=== PATIENT | male | born 1935 | race Caucasian/White ===

== ENCOUNTER 2017-01-17 18:28 | Emergency (ER) | payer MEDICARE, BC ==
--- NOTE | 2017-01-17 18:29 | UC ---
Ear Complaint HPI - HPI Summary HPI Summary: 81 year old male presents with complains of bilateral ear cerumen impaction. - History of Current Complaint Stated Complaint: EAR WAX BUILD-UP Time Seen by Provider: 01/17/17 18:29 Hx Obtained From: Patient Onset/Duration: Sudden Onset Severity Initially: Moderate Severity Currently: Moderate Pain Scale Used: 0-10 Numeric - 0 - Allergies/Home Medications Allergies/Adverse Reactions: Allergies Allergy/AdvReac Type Severity Reaction Status Date / Time No Known Allergies Allergy Verified 12/15/15 18:58 PMH/Surg Hx/FS Hx/Imm Hx Previously Healthy: Yes - Surgical History Surgical History: Yes Surgery Procedure, Year, and Place: tonsils; hip recontruction right - Family History Known Family History: Positive: Other - Lung CA - father - Social History Alcohol Use: None Substance Use Type: None Smoking Status (MU): Never Smoked Tobacco - Immunization History Most Recent Influenza Vaccination: 2012 Review of Systems Constitutional: Negative Skin: Negative Eyes: Negative ENT: Ear Ache Respiratory: Negative Cardiovascular: Negative Gastrointestinal: Negative Genitourinary: Negative Motor: Negative Neurovascular: Negative Musculoskeletal: Negative Neurological: Negative Psychological: Negative All Other Systems Reviewed And Are Negative: Yes Physical Exam Triage Information Reviewed: Yes Appearance: Well-Appearing Vital Signs Reviewed: Yes Eye Exam: Normal ENT: Positive: Other: - bilateral ear cerumen impaction Dental Exam: Normal Neck exam: Normal Neck: Positive: 1 Respiratory Exam: Normal Cardiovascular Exam: Normal Abdominal Exam: Normal Musculoskeletal Exam: Normal Neurological Exam: Normal Psychological Exam: Normal Skin Exam: Normal Ear Complaint Course/Dx - Differential Dx/Diagnosis Provider Diagnoses: bilatral cerumen impaction Discharge - Discharge Plan Condition: Stable Disposition: HOME Prescriptions: Neomyc/Polym/HC 1% OTIC SUSP* [Cortisporin Otic Susp 1%*] 4 drop BOTH EARS QID # 1 btl Patient Education Materials: Cerumen Impaction (ED) Referrals: Ruth Armijo PA [Physician Resource Conservation Manager] -
[2017-01-17 18:38] VITALS: BP 159/68
== END 2017-01-17 19:20 | disposition home or self-care (01) ==
LOC: UCEAST 18:28
DX: H61.23 Impacted cerumen, bilateral (principal)
CPT/HCPCS: 99213; G0463

== ENCOUNTER 2017-02-26 09:25 | Emergency (ER) | payer MEDICARE, BC ==
[2017-02-26] MEDS ORDERED: NS 0.9% 1000 ML* 1,000 ML IV ONE (10:21)
[2017-02-26 11:56] LABS: Hematocrit 31 % (42-52); Hemoglobin 10.2 g/dl (14.0-18.0); Mean Corpuscular HGB Conc 33 g/dl (31-36); Mean Corpuscular Hemoglobin 30 pg (27-31); Mean Corpuscular Volume 89 fL (80-94); Mean Platelet Volume 9 um3 (7.4-10.4); Red Blood Count 3.45 10^6/ul (4.0-5.4); Red Cell Distribution Width 14 % (10.5-15); White Blood Count 7.7 10^3/ul (3.5-10.8)
[2017-02-26 11:58] LABS: Urine Bilirubin Negative (Negative); Urine Glucose Negative (Negative); Urine Nitrite Negative (Negative)
[2017-02-26 12:07] LABS: Albumin 3.4 g/dL (3.2-5.2); BUN/Creatinine Ratio 11.9 (8-20); C Reactive Protein 6.11 mg/L (< 5.00); Calcium 9.2 mg/dL (8.6-10.3); EGFR African American 19.9 (>60); EGFR Non-African American 15.5 (>60); Globulin 3.7 g/dL (2-4); Magnesium 1.8 mg/dL (1.9-2.7); Total Bilirubin 0.2 mg/dL (0.2-1.0); Total Protein 7.1 g/dL (6.4-8.9)
[2017-02-26 12:10] LABS: Potassium 5.7 mmol/L (3.5-5.0)
[2017-02-26] MEDS ORDERED: Dextrose 50% VIAL 50 ml IV STA (12:56)
[2017-02-26] MEDS ORDERED: Insulin REGULAR(*) 1 UNITS UNIT IV PUSH ONE (12:57)
[2017-02-26] MEDS ORDERED: Sodium Bicarbonate 8.4%* 50 ML SYRINGE IV ONE (12:57)
[2017-02-26] MEDS ORDERED: Calcium CHLORIDE 10% SYRINGE* 1 GM/10 ML IV ONE (12:58)
[2017-02-26] MEDS ORDERED: Insulin REGULAR(*) 1 UNITS UNIT ONE (13:10)
[2017-02-26] MEDS ORDERED: Sodium Bicarbonate 8.4%* 50 ML SYRINGE ONE (13:10)
[2017-02-26] MEDS ORDERED: Calcium CHLORIDE 10% SYRINGE* 1 GM/10 ML ONE (13:10)
[2017-02-26] MEDS ORDERED: Dextrose 50% Syringe 50 ML* 25 GM/50 ML SYRINGE ONE (13:10)
[2017-02-26 14:26] LABS: BUN/Creatinine Ratio 11.2 (8-20); Calcium 9.1 mg/dL (8.6-10.3); EGFR African American 21.2 (>60); EGFR Non-African American 16.5 (>60); Potassium 4.4 mmol/L (3.5-5.0)
--- NOTE | 2017-02-26 14:32 | RAD ---
Indication: Abdominal pain. Kidney disease. Comparison: No relevant prior exams available on the [facility] for comparison. Technique: Renal ultrasound. Report: 12.0 x 4.8 x 4.7 cm RIGHT kidney demonstrates heterogeneous increased cortical echogenicity and moderately severe hydronephrosis. No conspicuous stones or focal renal lesions. 12.0 x 4.1 x 5.1 cm LEFT kidney demonstrates similar heterogeneously increased cortical echogenicity and moderately severe hydronephrosis. No conspicuous stones or focal lesions. No ureteral jets visualized at the urinary bladder on real-time exam. Enlarged prostate. IMPRESSION: 1. Increased renal cortical echogenicity consistent with medical renal disease. 2. Moderately severe bilateral hydronephrosis. No visualized urolithiasis. 3. Prostatomegaly.
[2017-02-26 14:35] VITALS: BP 148/61
--- NOTE | 2017-02-26 14:39 | ED ---
Yulia Arenas Thomas, scribed for Manas Lozada MD on 02/26/17 at 1022 . GI/ HPI - HPI Summary HPI Summary: The pt is an 81 y/o M referred to the ED by his PMD after his BUN and creatinine were significantly elevated during routine blood tests. His only complaint is of urinary frequency. Pt denies nausea, vomiting, and pruritus. He is on atenolol. - History of Current Complaint Chief Complaint: EDGeneral Time Seen by Provider: 02/26/17 10:09 Stated Complaint: NEEDS TO HAVE LAB WORK Hx Obtained From: Patient Onset/Duration: Still Present Timing: Constant Pain Intensity: 0 Associated Signs and Symptoms: Positive: Other: - Urinary frequency; NEGATIVE: N /V, pruritus Aggravating Factor(s): Nothing Alleviating Factor(s): Nothing - Allergy/Home Medications Allergies/Adverse Reactions: Allergies Allergy/AdvReac Type Severity Reaction Status Date / Time No Known Allergies Allergy Verified 02/26/17 09:27 Home Medications: Home Medications Atenolol TAB* [Tenormin TAB* 25 MG] 25 mg PO DAILY 02/26/17 [History Confirmed 02/26/17] Atorvastatin* [Lipitor*] 10 mg PO WEEKLY 02/26/17 [History Confirmed 02/26/17] Lactobacillus [Probiotic] 1 cap PO WEEKLY 02/26/17 [History Confirmed 02/26/17] Multivitamins/Minerals TAB* [Theragran/minerals TAB*] 1 tab PO EVERY OTHER DAY 02/26/17 [History Confirmed 02/26/17] Rhodelia-3 Fatty Acids [Rhodelia 3] 1 cap PO EVERY OTHER DAY 02/26/17 [History Confirmed 02/26/17] PMH/Surg Hx/FS Hx/Imm Hx Previously Healthy: No Cardiovascular History: Reports: Hx Hypercholesterolemia - mild, Hx Hypertension History: Reports: Other Problems/Disorders - PMHx pos enlarged prostate - Cancer History Cancer Type, 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 - Surgical History Surgery Procedure, Year, and Place: tonsils; hip recontruction right Infectious Disease History: Unable to Obtain/Confirm Infectious Disease History: Denies: History Other Infectious Disease, Traveled Outside the [place] in Last 30 Days - Family History Known Family History: Positive: Other - Lung CA - father - Social History Alcohol Use: None Hx Substance Use: No Substance Use Type: Reports: None Hx Tobacco Use: No Smoking Status (MU): Never Smoked Tobacco Review of Systems Negative: Vomiting, Nausea Positive: frequency Negative: Other - pruritus All Other Systems Reviewed And Are Negative: Yes Physical Exam - Summary Physical Exam Summary: VITAL SIGNS: Reviewed. GENERAL: Patient is a well-developed and nourished male who is lying comfortable in the stretcher. Patient is not in any acute respiratory distress. HEAD AND FACE: No signs of trauma. No ecchymosis, hematomas or skull depressions. No sinus tenderness. EYES: PERRLA, EOMI x 2, No injected conjunctiva, no nystagmus. EARS: Hearing grossly intact. Ear canals and tympanic membranes are within normal limits. MOUTH: Oropharynx within normal limits. NECK: Supple, trachea is midline, no adenopathy, no JVD, no carotid bruit, no c- spine tenderness, neck with full ROM. CHEST: Symmetric, no tenderness at palpation LUNGS: Clear to auscultation bilaterally. No wheezing or crackles. CVS: Regular rate and rhythm, S1 and S2 present, no murmurs or gallops appreciated. ABDOMEN: Soft, non-tender. No signs of distention. No rebound no guarding, and no masses palpated. Bowel sounds are normal. EXTREMITIES: FROM in all major joints, no edema, no cyanosis or clubbing. NEURO: Alert and oriented x 3. No acute neurological deficits. Speech is normal and follows commands. SKIN: Dry and warm Triage Information Reviewed: Yes Vital Signs On Initial Exam: Initial Vitals Temp Pulse Resp BP Pulse Ox 98.4 F 58 16 142/64 100 02/26/17 09:27 02/26/17 09:27 02/26/17 09:27 02/26/17 09:27 02/26/17 09:27 Vital Signs Reviewed: Yes - [place] Coma Scale Coma Scale Total: 15 Diagnostics - Vital Signs Vital Signs Temp Pulse Resp BP Pulse Ox 02/26/17 09:27 98.4 F 58 16 142/64 100 - Laboratory Result Diagrams: 02/26/17 10:34 02/26/17 14:00 Lab Statement: Any lab studies that have been ordered have been reviewed, and results considered in the medical decision making process. - EKG 10:39 Cardiac Rate: Bradycardia EKG Rhythm: Sinus Rhythm EKG Interpretation: 48 BPM. First degree AV Block. LAFB. Nonspecific T wave changes. - Additional Comments Diagnostic Additional Comments: Ultrasound Renal. Interpreted by radiologist. Impression: 1. Increased renal cortical echogenicity consistent with medical renal disease. 2. Moderately severe bilateral hydronephrosis. No visualized urolithiasis. 3. Prostatomegaly. ED physician has reviewed this report and agrees. GIGU Course/Dx - Course Assessment/Plan: I consulted with Dr. Winters, who is away on vacation and will return on 03/02/17, when he will see the patient. He recommends lowering the patients potassium and follow up at his office on 03/02/17. Dr. Winters recommends lowering the patients potassium and to follow up at his office in four days. The patient was given calcium chloride, dextrose 50%, insulin, IV fluids, and sodium bicarbonate. The patients potassium is down to 4.4 The patient was advised a strict renal diet that includes low potassium and low protein intake. I did tell Dr. Winters that the patient may have multiple myeloma , and Dr. Winters will investigate that. - Diagnoses Provider Diagnoses: Acute renal insufficiency - Physician Notifications Discussed Care Of Patient With: Clay Winters Time Discussed With Above Provider: 13:20 Instructed by Provider To: Other - Dr. Winters, nephrology, advises lowering the patient's potassium and following up at his office on Thursday. He was informed that the patient may have multiple myeloma. Discharge - Discharge Plan Condition: Stable Disposition: HOME Patient Education Materials: Impaired Kidney Function (ED), Low Sodium Diet (ED ) Referrals: Clay Winters MD [Medical Doctor] - 03/02/17 Additional Instructions: Follow up at Dr. Winters's office on March 02. Call his office tomorrow morning for an appointment. The documentation as recorded by the Yulia erazo Thomas accurately reflects the service I personally performed and the decisions made by me, Manas Lozada MD.
== END 2017-02-26 15:03 | disposition home or self-care (01) ==
LOC: ED 09:25
DX: N28.9 Disorder of kidney and ureter, unspecified (principal); R35.0 Frequency of micturition
CPT/HCPCS: 36415; 76775; 80048; 80053; 81003; 82550; 83735; 84300; 85025; 85610; 85730; 86140; 87086; 93005; 96374; 99283

== ENCOUNTER 2017-03-03 09:00 | Inpatient (IN) | payer MEDICARE, BC ==
[2017-03-03] MEDS ORDERED: Acetaminophen TAB* 325 MG PO PRN (17:35)
[2017-03-03] MEDS ORDERED: Ondansetron INJ* 2 MG/ML VIAL IV PRN (17:35)
[2017-03-03] MEDS ORDERED: hydrALAZINE IV* 20 MG/ML VIAL IV SLOW PU PRN (17:41)
[2017-03-03 17:49] LABS: Hematocrit 32 % (42-52); Mean Corpuscular HGB Conc 34 g/dl (31-36); Mean Corpuscular Hemoglobin 31 pg (27-31); Mean Corpuscular Volume 89 fL (80-94); Mean Platelet Volume 9 um3 (7.4-10.4); Red Blood Count 3.59 10^6/ul (4.0-5.4); Red Cell Distribution Width 14 % (10.5-15); White Blood Count 10.4 10^3/ul (3.5-10.8)
[2017-03-03] MEDS: D5W 1/2 NS 1000 ML BAG* 1,000 ML IV SCH ×3 (18:00→22:00)
[2017-03-03] MEDS ORDERED: Atorvastatin* 10 MG TAB PO SCH (18:00)
[2017-03-03 18:07] LABS: BUN/Creatinine Ratio 10.3 (8-20); EGFR African American 18.7 (>60); EGFR Non-African American 14.5 (>60); Magnesium 1.8 mg/dL (1.9-2.7); Phosphorus 4.7 mg/dL (2.5-5.0)
[2017-03-03 18:11] LABS: Potassium 5.7 mmol/L (3.5-5.0)
--- NOTE | 2017-03-03 18:31 | CONS ---
Cc: Lanny Correa DO * UROLOGY CONSULTATION: DATE OF CONSULT: 03/03/17 REQUESTING PHYSICIAN: Clay Winters MD DIAGNOSES: 1. Urinary retention. 2. Bilateral hydronephrosis. 3. Renal insufficiency. 4. Prostate enlargement. HISTORY OF PRESENT ILLNESS: Tamra Hicks is an 81-year-old gentleman was referred by Dr. Winters for urinary retention. Over the last few months, he has noticed some increased urinary frequency and reduced urinary flow. He gets up 4 to 5 times a night, but denies any dysuria, gross hematuria or flank pain. He was noted by his primary care doctor to have an increased serum creatinine and was actually sent to the emergency room last week, where an ultrasound was obtained which revealed severe bilateral hydronephrosis. I reviewed the ultrasound imaging and it is obvious on the ultrasound that he had a distended bladder but for some reason this was not addressed and a Nassar catheter was not placed. He was then referred to Dr. Winters who on examination noted an obviously distended bladder and I was then consulted. PAST MEDICAL HISTORY: Significant for, 1. Hypertension. 2. High cholesterol. PAST SURGICAL HISTORY: Significant for right hip fracture in 1992 and tonsillectomy. MEDICATIONS: On admission include, 1. Lipitor 1 tablet once a week. 2. Atenolol 25 mg daily. ALLERGIES: CIPRO (not sure about nature of allergy). SMOKING HISTORY: He is a nonsmoker. FAMILY HISTORY: Negative for stone or prostate cancer. PHYSICAL EXAM: Reveals a pleasant, healthy appearing, elderly gentleman who is reasonably comfortable. Blood pressure is 162/90, pulse 63 per minute regular, oxygen saturation 97% on room air, temperature 96.4. Cardiovascular Exam: Regular rate and rhythm, S1, S2. Lungs are clear bilaterally. Abdomen: Soft with a markedly distended bladder. Testicles are bilaterally descended and normal. Rectal exam reveals a markedly large prostate without nodularity or asymmetry. DIAGNOSTIC STUDIES/LAB DATA: Urinalysis is negative. A 20-Kosovan coude tip catheter was placed without difficulty and about 1600 cc of clear urine was drained. IMPRESSION AND PLAN: Because of the bilateral hydronephrosis, he is obviously at risk for post-obstructed diuresis. I have explained this to the patient and Dr. Winters has arranged for him to be directly admitted to the hospital. I am also going to discuss this with Dr. Correa and talk about the protocol for fluid management in the event of post- obstructed diuresis. 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 It may make sense to start him on Flomax 0.4 mg once a day and then I can see him in followup as an outpatient and the next step would be to consider urodynamic to assess for detrusor contractility. If he turns out to have a flaccid neuro-genic bladder, then the option would be either indwelling chronic catheter versus intermittent self-catheterization. If on the other hand, he has or does develop return of detrusor function, then he could be a candidate for a transurethral resection of prostate in the future. [id number]/CPS #: [id number] MTDLeo
[2017-03-03] MEDS ORDERED: traMADol TAB* 50 MG PO ONE (18:44)
[2017-03-03] MEDS ORDERED: Sodium Polystyrene ORAL.SOL* 15 GM/60 ML BTL PO ONE (18:45)
[2017-03-03] MEDS ORDERED: traMADol TAB* 50 MG ONE (18:50)
[2017-03-03] MEDS: Atenolol TAB* 25 MG PO SCH (18:57)
--- NOTE | 2017-03-03 18:59 | RAD ---
Indication: Left leg edema. Duplex Doppler sonography of the deep venous system of the left lower extremity deep venous system was performed. Bilaterally the common femoral veins appear patent and compressible. Left proximal greater saphenous vein, proximal deep femoral vein, femoral vein, popliteal vein, posterior tibial veins and peroneal veins appear patent and compressible. Incidentally popliteal fossa cyst is noted measuring up to 3.8 cm. IMPRESSION: NO EVIDENCE OF DEEP VENOUS THROMBOSIS IS IDENTIFIED.
[2017-03-03 23:05] LABS: Urine Bacteria 1+ (Absent)
[2017-03-03 23:25] LABS: Calcium 8.4 mg/dL (8.6-10.3); EGFR African American 19.1 (>60); EGFR Non-African American 14.8 (>60)
--- NOTE | 2017-03-03 23:31 | HP ---
CC: Yvrose Gleason NP; Dr. Mcclellan; Dr. Winters * HISTORY AND PHYSICAL: DATE OF ADMISSION: 03/03/17 PRIMARY CARE PROVIDER: Yvrose Gleason NP CONSULTING UROLOGIST: Dr. Mcclellan. CONSULTING HEADING PINNER: Dr. Winters. ATTENDING PHYSICIAN WHILE IN THE HOSPITAL: Jacky Schaefer MD * (report dictated by Robin Amador NP) CHIEF COMPLAINT: 1. Abnormal labs. 2. Urinary obstruction. HISTORY OF PRESENT ILLNESS: Mr. Hicks is an 81-year-old male patient, who has a history of BPH, hypertension, hyperlipidemia, and a recent diagnosis of Lyme disease. He came into the ER on the of last month with complaints of abnormal labs. He was evaluated by his primary as he has not been feeling well. He had been feeling weak, and he has also been having urinary frequency and he had noted that he was leaking at times his urine. He came to the ED after it was noted that his BUN and creatinine were significantly elevated. He was evaluated and set up to follow up with Dr. Winters which he saw the patient today and was noted that he had a significant amount of urinary retention. The patient was sent over to Dr. Mcclellan's office, a catheter was placed. He had about 1600 cc of urine out of his bladder. There was concern because of the amount of fluid that he out that he might get into the trouble with post obstructive diuresis and he may require IV fluids, so he was sent to our hospital for direct admission. We were asked to evaluate the patient for admission. The patient was evaluated upstairs. He denies having any chest pain or shortness of breath. He has been having some frequency. No pain with urination. No fevers, no chills. No back pain. He does state that he has been having difficulty just because he has to go so frequently. There has been no chest pain. No shortness of breath. Denied having any dysuria. No fevers or chills were reported or any nausea or vomiting. Again, he was found to have about 1600 cc of fluid out in Dr. Mcclellan's office and he was sent to the hospital for further observation. PAST MEDICAL HISTORY: Significant for: 1. Hypertension. 2. Hyperlipidemia. 3. BPH. 4. Lyme disease. PAST SURGICAL HISTORY: 1. The patient has had a right hip ORIF. 2. He has had a tonsillectomy. HOME MEDICATIONS: According to his recall include: 1. Atenolol 25 mg daily. 2. Atorvastatin 1 tablet weekly. 3. Probiotics 1 capsule weekly. 4. Multivitamin 1 tablet every other day. 5. Calhoun-3 fatty acid 1 capsule p.o. every other day. We will try to clarify this list with him. ALLERGIES TO MEDICATIONS: He thinks include CIPRO. FAMILY HISTORY: His mother had dementia. Father had a history of lung cancer. SOCIAL HISTORY: He does not smoke. He does not drink. Surrogate decision maker would be his children. He gets to appoint one though at this point. REVIEW OF SYSTEMS: There is no documented fever. He denied having any significant weight change. There was no double vision. He denies having any ear discharge. There is no rhinorrhea. No sore throat. No thyroid enlargement. He denies having any chest pain. There is no orthopnea. There is no nocturnal dyspnea. There was no abdominal pain. There was no nausea. No vomiting. There was frequency, but no dysuria. No seizure. No loss of consciousness. No pruritus and no skin ulceration. Review of 14 systems completed, all others negative. PHYSICAL EXAMINATION GENERAL: At this time, Mr. Hicks is an 81-year-old male patient. He appears to be well nourished, well developed. He is sitting in the hospital bed. He does not appear to be in any acute distress. VITAL SIGNS: Blood pressure 180/81, pulse 61, respirations 14, O2 sat 100%, temperature 98. HEENT: Head atraumatic, normocephalic. Eyes: EOMs are intact. Sclerae anicteric and not pale. Throat: Oral mucosa appears to be moist. No oropharyngeal erythema. NECK: Supple. LUNGS: Clear to auscultation. No wheezes, rales, or rhonchi. HEART: Sounds S1, S2. Regular rate and rhythm. No murmurs, rubs, or gallops. ABDOMEN: Soft, flat, nontender. Bowel sounds present. EXTREMITIES: Pulses are 2+ throughout. Moving all 4 extremities with 5/5 strength. NEUROLOGIC: He is awake, alert. He is oriented x3. His tongue is midline. His solvent station attendant were equal. He had no gross focal deficits. SKIN: His skin was grossly intact. DIAGNOSTIC STUDIES/LAB DATA: The most recent labs that I have these are from yesterday, WBC 9.6, RBC of 3.56, hemoglobin 10.7, hematocrit 52, platelet count 241. His sodium was 138, potassium 5.8, chloride of 106, bicarb 25, BUN 40, creatinine 3.94, his mag was 1.7, his AST 18, ALT 11. He had a renal ultrasound, outpatient, impression: Increased renal cortical echogenicity consistent with medical renal disease, moderately severe bilateral hydronephrosis, no visualized urolithiasis, prostatomegaly. Old medical records were reviewed. He had an EKG on the as well, shows a sinus bradycardia, rate of 48 with biphasic T-waves in V2, V3. There appeared to be a first-degree AV block as well. There was no previous EKG for comparison. Old medical records were reviewed. ASSESSMENT AND PLAN: Mr. Hicks is an 81-year-old male patient coming into the hospital today due to bladder obstruction. We were asked to evaluate for admission. He will be admitted under inpatient status for: 1. Acute renal failure. I suspect etiology is probably secondary to his prostate and causing urinary retention and thus causing acute renal failure from obstructive standpoint. He was already by Dr. Mcclellan and Dr. Winters. The plan will be to admit the patient under observation and anticipate that he is probably going to have a postobstructive diuresis. The plan according to Dr. Mcclellan is he would like to check q.1 hour Is and Os and then replace that with IV fluids with the previous hours output with 2/3rd of IV fluids for the next hour and to continue to do this until the diuresis subside. We will check the Is and Os every hour and based on the previous urine output, we will replace with 2/3rd IV fluids and adjust as recommended. We will put him on D5 half normal per the recommendations. Dr. Winters will check a CBC, BMP right now. We will also check mag and phos and we will continue to monitor for any bladder hemorrhages. Given the distention that the patient did have, it is certainly he could run into trouble with bleeding. He is already having some hematuria due to the bladder distention. We will follow this closely. I will get a FENa as well, but again I suspect this is probably related to obstructive reasons from most likely his prostate. 2. Hypertension. His blood pressure is quite elevated now. I will go ahead and give him his atenolol and also p.r.n. hydralazine as needed for blood pressure greater than 180. 3. Hyperlipidemia. Continue his statin therapy. 4. Lyme disease. Continue meds as prescribed. 5. Left lower extremity swelling. I will check ultrasound of this extremity to make sure there is no deep venous thrombosis. 6. Code status. Full code. 7. Fluids, electrolytes, and nutrition. He can have a renal diet. TIME SPENT: Time spent on the admission was approximately 60 minutes, greater than half of the time was spent [id number] with the patient obtaining my history and physical, the other half time spent going over the plan of care with the patient, implementing plan of care. I did discuss the plan of care with my attending, Dr. Schaefer, he is in agreement. ROBIN AMADOR NP [id number]/[facility] #: [id number] RAFAT
[2017-03-04] MEDS: D5W 1/2 NS 1000 ML BAG* 1,000 ML IV SCH ×8 (00:05→14:53)
[2017-03-04 05:54] LABS: Hematocrit 29 % (42-52); Hemoglobin 9.7 g/dl (14.0-18.0); Mean Corpuscular HGB Conc 34 g/dl (31-36); Mean Corpuscular Hemoglobin 30 pg (27-31); Mean Corpuscular Volume 90 fL (80-94); Mean Platelet Volume 9 um3 (7.4-10.4); Red Blood Count 3.21 10^6/ul (4.0-5.4); Red Cell Distribution Width 14 % (10.5-15); White Blood Count 10.2 10^3/ul (3.5-10.8)
[2017-03-04 06:14] LABS: BUN/Creatinine Ratio 10.7 (8-20); Calcium 7.9 mg/dL (8.6-10.3); EGFR African American 21.4 (>60); EGFR Non-African American 16.7 (>60); Potassium 4.6 mmol/L (3.5-5.0)
[2017-03-04] MEDS: Atenolol TAB* 25 MG PO SCH (09:41)
[2017-03-04] MEDS: Tamsulosin CAP* 0.4 MG PO SCH (11:22)
--- NOTE | 2017-03-04 12:06 | PN ---
Subjective Date of Service: 03/04/17 Interval History: Pt has no new complaints. As per d/w RN pt still has 200-230 ml of UO hourly. still urine tinged with blood. Objective Active Medications: Acetaminophen (Tylenol Tab*) 650 mg PO Q4H PRN PRN Reason: FEVER/PAIN Last Admin: 03/04/17 07:52 Dose: 650 mg Atenolol (Tenormin Tab*) 25 mg PO DAILY@2100 [place] Atorvastatin Calcium (Lipitor*) 10 mg PO WEEKLY [facility] Hydralazine HCl (Apresoline Iv*) 5 mg IV SLOW PU Q6H PRN PRN Reason: BLOOD PRESSURE Dextrose/Sodium Chloride (D5w / Ns 1000 Ml Bag*) 1,000 mls @ 125 mls/hr IV PER RATE [facility] Last Admin: 03/04/17 11:21 Dose: 100 mls/hr Tamsulosin HCl (Flomax Cap*) 0.4 mg PO DAILY [facility] Last Admin: 03/04/17 11:22 Dose: 0.4 mg Vital Signs - 8 hr 03/04/17 03/04/17 03/04/17 07:15 07:24 09:20 Temperature 97.5 F 97.6 F Pulse Rate 54 56 Respiratory 16 20 16 Rate Blood Pressure 153/68 130/52 (mmHg) O2 Sat by Pulse 100 100 Oximetry 03/04/17 11:25 Temperature 97.7 F Pulse Rate 52 Respiratory 20 Rate Blood Pressure 114/50 (mmHg) O2 Sat by Pulse 97 Oximetry Oxygen Devices in Use Now: None Appearance: 81 yo M in nAD, aAOx3 Eyes: No Scleral Icterus, PERRLA Ears/Nose/Mouth/Throat: NL Teeth, Lips, Gums, Mucous Membranes Moist Neck: NL Appearance and Movements; NL JVP, Trachea Midline Respiratory: Symmetrical Chest Expansion and Respiratory Effort, Clear to Auscultation Cardiovascular: NL Sounds; No Murmurs; No JVD, RRR Abdominal: NL Sounds; No Tenderness; No Distention Lymphatic: No Cervical Adenopathy Extremities: No Clubbing, Cyanosis, - - trace left ankle edema Skin: No Nodules or Sclerosis, - - seborrheic keratoses noted on trunk Neurological: Alert and Oriented x 3, NL Muscle Strength and Tone Result Diagrams: 03/04/17 05:32 03/04/17 05:32 Assess/Plan/Problems-Billing Assessment: 81 yo recently , with h/o BPH, HTN presents with acute renal failure due to obstruction - Patient Problems (1) Acute renal failure Comment: Creat improving slowly. Still in significant postobstructive diuresis. will cont to replace with IVF. Nassar placed by in office prior to admission. Pt will go home with Nassar (2) Hematuria Comment: traumatic, improving (3) BPH (benign prostatic hyperplasia) Comment: causing obstruction. flomax started (4) HTN (hypertension) Comment: cont Atenolol with hold parameters (5) Dyslipidemia Comment: cont lipitor (6) Hyperkalemia Comment: due to renal failure. Tx with Kayexalate, resolving Status and Disposition: Inpatient, will require at least 24 hrs more of monitoring and tx with IVF
[2017-03-04] MEDS ORDERED: Atenolol TAB* 25 MG PO SCH (21:00)
[2017-03-05] MEDS: D5W 1/2 NS 1000 ML BAG* 1,000 ML IV SCH (03:50)
[2017-03-05 06:12] LABS: Hematocrit 29 % (42-52); Hemoglobin 9.8 g/dl (14.0-18.0); Mean Corpuscular HGB Conc 34 g/dl (31-36); Mean Corpuscular Hemoglobin 30 pg (27-31); Mean Corpuscular Volume 89 fL (80-94); Mean Platelet Volume 9 um3 (7.4-10.4); Red Blood Count 3.24 10^6/ul (4.0-5.4); Red Cell Distribution Width 14 % (10.5-15); White Blood Count 10.3 10^3/ul (3.5-10.8)
[2017-03-05 06:26] LABS: BUN/Creatinine Ratio 10.2 (8-20); Calcium 8.4 mg/dL (8.6-10.3); EGFR African American 25.5 (>60); EGFR Non-African American 19.8 (>60); Magnesium 1.3 mg/dL (1.9-2.7); Potassium 4.7 mmol/L (3.5-5.0)
[2017-03-05] MEDS ORDERED: Magnesium Sulfate 2 GM IV* 2 GM/50 ML BAG IVPB ONE (07:29)
[2017-03-05] MEDS ORDERED: Magnesium Sulf 4 GM/100 ML IV* 4,000 MG/100 ML BAG IVPB ONE (07:29)
[2017-03-05] MEDS: Tamsulosin CAP* 0.4 MG PO SCH (08:04)
--- NOTE | 2017-03-05 10:11 | PN ---
PROGRESS NOTE: DATE OF SERVICE / DICTATION: 03/05/17 HISTORY: Mr. Hicks is feeling significantly better than when I saw him in the office at the time of admission. He is having no discomfort from his catheter, although was uncomfortable being placed. He is eating and drinking well. He has a very rapid diuresis going on, which was anticipated. He has had some hematuria, which was also anticipated. He is not getting up and around as much as I would like because he is having difficult time manipulating his IV and his Nassar catheter bag, etc. He is breathing well. He is eating well. He has no nausea or vomiting. His tremor seems a little bit better to me. Blood pressure is 152/63 with a pulse of 60, respirations are 14. He is anicteric. His extraocular muscles are intact. Mucous membranes are moist. Chest is clear. The heart revealed a regular rhythm without murmurs. There is no edema. His creatinine has fallen somewhat to 3.05, but I would have hoped for a little bit of greater improvement than that. His electrolytes were within normal limits. He has developed some hypomagnesemia at 1.3, this is being replaced. At some point, I think it would be reasonable thing to convert him over to oral magnesium supplementation. I concur with Dr. Mcclellan's plan of leaving the catheter in place for some time and then checking for possibility of a neurogenic bladder. I would hope that he be able to be discharged to close medical followup sometime in the next day or two. [id number]/[facility] #: [id number] RAFAT
[2017-03-05 11:23] VITALS: BP 124/50
--- NOTE | 2017-03-06 00:30 | DS ---
CC: Yvrose Gleason NP; Dr. Mcclellan; Dr. Winters * DISCHARGE SUMMARY: DATE OF ADMISSION: 03/03/17 DATE OF DISCHARGE: 03/05/17 PRIMARY CARE PROVIDER: Yvrose Gleason NP DISCHARGE DIAGNOSES: Acute renal failure and hyperkalemia due to obstructive uropathy likely due to benign prostatic hyperplasia, status post Nassar placement. The patient is being discharged with Nassar catheter to home. SECONDARY DIAGNOSES: 1. History of hypertension. 2. Hyperlipidemia. 3. History of benign prostatic hypertrophy. 4. History of Lyme disease in the summer of 2016. MEDICATIONS AT DISCHARGE: Include: 1. Atenolol 25 mg daily. 2. Atorvastatin 10 mg daily. 3. Probiotic 1 capsule daily. 4. Multivitamin 1 tablet daily. 5. [place]-3 fatty acid 1 capsule daily. 6. Flomax 0.4 mg daily. LABORATORY DATA AND STUDIES PERFORMED DURING THE HOSPITAL STAY: Include: On ; sodium of 136, potassium 4.7, chloride 105, carbon dioxide 25, BUN 31, creatinine 3.05. The patient's magnesium level was 1.3 and that was replaced with 4 g of IV magnesium. White blood cell count of 10.3, hemoglobin 9.8, hematocrit of 29, and platelets of 223. Microbiology studies showed urine cultures that were negative on growth. Venous Doppler study of left lower extremity obtained on 03/03/17 showed no evidence of DVT. CONSULTATION DURING THE HOSPITAL STAY: Include Dr. Winters from Nephrology. HOSPITALIZATION COURSE: Trey Hicks is an 81-year-old male with history of hypertension and dyslipidemia, who has had problems with urinary frequency for several weeks. She also had been feeling weak and developed skin pruritus. His was dying of leukemia over that period of time and she actually 2 weeks ago. On 02/25/17, he went to see for his primary care provider and lab work showed creatinine of 3.7. Subsequently, he was sent to Dr. Winters for evaluation. Dr. Winters noted that the patient had high postvoid residual and directed patient to Dr. Mcclellan. Dr. Mcclellan saw the patient in the office on 03/03 and placed a Nassar catheter. The Nassar catheter yielded approximately 1600 mL of postvoid residual. Due to high volume of postvoid residual and suspected that the patient developed neurogenic bladder, the patient was admitted to the hospital for further monitoring. He was placed on intravenous hydration and he was noted to have a postobstructive diuresis that was replaced with intravenous fluids. He had traumatic hematuria and initially at admission that started resolving by the time of discharge. His creatinine decreased from its peak at 3.9 to 3.05 by the time of discharge. By the time of discharge, the patient was noted to be hypomagnesemic with a magnesium level of 1.3, likely related to dilution since the patient's magnesium 2 days prior to that was 1.8. The patient received 4 g of IV magnesium that day. He is recommended to follow up with magnesium level in 5 days on 03/11/17. At this point, he is now going to be placed on magnesium replacement here due to his renal failure. His high urine output started to decrease by 03/04/17 and by 03/05/17, the patient's urine was only tinged with blood and his urine output stabilized. The patient is being discharged home and visiting nurse association set up for the patient due to that the patient is going to go with a Nassar in place. The patient already has set up appointments with Dr. Winters and Dr. Mcclellan next week as well as blood work to be obtained on 03/11/[address] Winters's office. PHYSICAL EXAMINATION: At the time of discharge, blood pressure of 134/50, heart rate of 63 and regular, respiratory rate 18, oxygen saturation 98% on room air, temperature 98.9. General: The patient is a very pleasant 81-year- old male who is in no acute distress. Alert, awake, and oriented x3. HEENT: Head: Atraumatic, normocephalic. Eyes: Pupils are equal, reactive to light and accommodation. Oropharynx clear. Mucosa moist. Neck: Supple. No JVD. No bruits bilaterally. Cardiovascular: Regular rate and rhythm. No murmur. Respiratory: Clear to auscultation bilaterally. Abdomen: Soft, nontender. Bowel sounds are present in all 4 quadrants. Extremities: There is no edema. Pulses are +2 bilaterally. No clubbing or cyanosis. Neuro Evaluation: Speech clear. Cranial nerves II through XII are grossly intact. Motor strength is 5/ 5 bilaterally. On evaluation of the skin, the patient has seborrheic keratosis on his trunk. No acute rashes or infections noted. Please note that this is a short summary of the patient's hospital stay. Please refer to further medical records for details. TIME SPENT: Approximately 40 minutes was spent on the patient's discharge. [id number]/[facility] #: [id number] MTDD
== END 2017-03-05 16:20 | disposition home health service (06) | DRG 683 ==
LOC: MEDTELE 09:00 → MED 15:01 → UNDOADMOB 15:01 → MEDTELE 15:05 → MED 15:05 → MEDTELE 16:51 → OBSVTOIN 03-04 09:00
PROVIDERS: ADMIT Hospitalist; ATTEND Internal Medicine
DX: N17.9 Acute kidney failure, unspecified (principal); A69.20 Lyme disease, unspecified; E87.5 Hyperkalemia; E83.42 Hypomagnesemia; N31.9 Neuromuscular dysfunction of bladder, unspecified; N40.1 Benign prostatic hyperplasia with lower urinary tract symptoms; N13.30 Unspecified hydronephrosis; R31.9 Hematuria, unspecified; I44.30 Unspecified atrioventricular block; N13.9 Obstructive and reflux uropathy, unspecified; E78.5 Hyperlipidemia, unspecified; I10 Essential (primary) hypertension; R33.8 Other retention of urine; Z80.1 Family history of malignant neoplasm of trachea, bronchus and lung; Z88.1 Allergy status to other antibiotic agents
CPT/HCPCS: 36415; 70450; 80048; 80053; 81003; 81015; 82570; 83605; 83735; 84100; 84300; 84443; 84484; 85025; 85027; 87086; 93005; 93306; 96360; 96361; 99283; A9270-GY; G0378; G8981-GP-CI; G8982-GP-CH; G8983-GP-CI; J3475

== ENCOUNTER 2017-03-05 16:45 | Observation (INO) | payer MEDICARE, BC ==
[2017-03-05 17:03] LABS: Hematocrit 30 % (42-52); Hemoglobin 10.2 g/dl (14.0-18.0); Mean Corpuscular HGB Conc 34 g/dl (31-36); Mean Corpuscular Hemoglobin 30 pg (27-31); Mean Corpuscular Volume 88 fL (80-94); Mean Platelet Volume 9 um3 (7.4-10.4); Red Blood Count 3.44 10^6/ul (4.0-5.4); Red Cell Distribution Width 14 % (10.5-15); White Blood Count 11.7 10^3/ul (3.5-10.8)
[2017-03-05 17:16] LABS: Troponin I 0.02 ng/mL (<0.04)
[2017-03-05 17:17] LABS: Albumin 3.4 g/dL (3.2-5.2); BUN/Creatinine Ratio 10.8 (8-20); Calcium 8.4 mg/dL (8.6-10.3); EGFR African American 28.2 (>60); EGFR Non-African American 21.9 (>60); Globulin 3.7 g/dL (2-4); Magnesium 2.2 mg/dL (1.9-2.7); Potassium 4.2 mmol/L (3.5-5.0); Total Bilirubin 0.6 mg/dL (0.2-1.0); Total Protein 7.1 g/dL (6.4-8.9)
[2017-03-05] MEDS ORDERED: Acetaminophen TAB* 325 MG PO PRN (17:21)
[2017-03-05] MEDS ORDERED: NS 0.9% 1000 ML* 1,000 ML IV SCH (17:30)
[2017-03-05 17:53] LABS: TSH (Thyroid Stimulating Horm) 2.02 mcIU/mL (0.34-5.60)
--- NOTE | 2017-03-05 19:29 | RAD ---
Indication: Syncope. CT of the brain was performed without IV contrast. Ventricular structures are midline. No midline shift is noted. The extra-axial spaces are unremarkable. Periventricular lucency consistent with chronic ischemic White matter change is noted. There is no evidence of intracranial mass or hemorrhage. No other high or low density lesions are identified. Mastoid air cells and paranasal sinuses are unremarkable. IMPRESSION: No intracranial mass or hemorrhage is noted. Chronic ischemic white matter changes are noted.
[2017-03-05] MEDS ORDERED: Atenolol TAB* 25 MG PO SCH (21:00)
--- NOTE | 2017-03-05 21:32 | HP ---
CONTINUATION ADDENDUM NOW INCLUDED ON THIS REPORT CC: Yvrose Gleason NP; Dr. Mcclellan; Dr. Winters * HISTORY AND PHYSICAL: DATE OF ADMISSION: 03/05/17 PRIMARY CARE PROVIDER: Yvrose Gleason NP CHIEF COMPLAINT: Syncope. HISTORY OF PRESENT ILLNESS: Trey Hicks is an 81-year-old male who was just discharged from our facility 3 hours ago. The patient stated that he was waiting for his son-in-law to provide him with a ride home. He stood up from the wheelchair that he was wheeled out of the hospital with and he was standing out for a couple of minutes. He stated that he felt diaphoretic and lightheaded. His son- in-law saw him leaning into the wall and lowered him to the ground. He did not lose consciousness. His systolic pressures when he came into the emergency department were noted to be in the 160s, subsequent one 3 minutes later was 139. Currently the pressures are in the 110s. His lab work overall is looking better than prior. His creatinine is down to 2.7. Today in the morning, it was 3.0. The patient has a history of obstructive uropathy and acute renal failure secondary to it for which he was hospitalized on telemetry monitored bed from 03/03/17 to 03/05/17. He stated that although he "did a round of walking" on the floor yesterday, on the day of admission, he really did not do that much of walking. He was discharged with a Nassar catheter in place. The patient is going to be placed on overnight observation with a diagnosis of syncope. I suspect orthostasis played a role. CONTINUATION ADDENDUM: PAST MEDICAL HISTORY: 1. History of benign prostatic hyperplasia and acute renal failure secondary to acute obstruction that was released with a Nassar catheter by Dr. Mcclellan on 08/13. 2. History of acute renal failure secondary to that. The patient's creatinine at the time of discharge was 3. The patient also suffered from hyperkalemia that resolved during his hospital stay for the past 3 days. 3. History of hypertension. 4. History of hyperlipidemia. 5. History of BPH as mentioned above. 6. History of Lyme disease. 7. History of right hip ORIF. MEDICATIONS: Medications which the patient was discharged with included: 1. Atenolol 25 mg daily. 2. Atorvastatin 10 mg weekly. 3. Probiotics 1 capsule weekly. 4. Multivitamin 1 tablet daily. 5. [place]-3 fatty acid 1 capsule every other day. 6. Flomax 0.4 mg daily that was started during his hospital stay. ALLERGIES: CIPROFLOXACIN. FAMILY HISTORY: Mother with dementia and father with history of lung cancer. SOCIAL HISTORY: The patient denies any tobacco, alcohol or drug use. His children are to be all involved in his surrogate decision making. He is a recent , his 2 weeks ago. REVIEW OF SYSTEMS: Please see history of present illness. All the remaining 12 systems reviewed with the patient were otherwise negative. Please also see discharge summary dictated on the same day for further details. PHYSICAL EXAMINATION GENERAL: The patient is a very pleasant 81-year-old male who is in no acute distress. Alert, awake and oriented x3. VITAL SIGNS: Blood pressure 116/59, heart rate of 75 and regular, respiratory rate 15, oxygen saturation 96% on room air, temperature 97.4. HEENT: Head atraumatic, normocephalic. Eyes: Pupils are equal, reactive to light and accommodation. Oropharynx clear. Mucosa moist. NECK: Supple. No JVD. No bruits bilaterally. RESPIRATORY: Clear to auscultation bilaterally. CARDIOVASCULAR: Regular rate and rhythm. No murmur. ABDOMEN: Soft, nontender, bowel sounds are present in all 4 quadrants. EXTREMITIES: There is no edema. Pulses are +2 bilaterally. No clubbing or cyanosis. NEUROLOGIC: Speech clear. Cranial nerves II through XII grossly intact. Motor strength is 5/5 bilaterally. SKIN: The patient has seborrheic keratosis throughout his trunk, otherwise unremarkable. PSYCHIATRIC: Oriented x3, no evidence of anxiety or depression. LABORATORY DATA/DIAGNOSTIC STUDIES: Showed sodium of 135, potassium 4.2, chloride 103, carbon dioxide 23, BUN 30, creatinine 2.7. Liver function tests were unremarkable. Magnesium of 2.2, lactic acid 1.7. CBC: White blood cell count 11.7, hemoglobin 10.2, hematocrit of 30, and platelets of 271,000. MCV was 88. Urinalysis was not obtained yet. EKG showed normal sinus rhythm with intraventricular conduction delay with heart rate of 72 beats per minute. It was similar to prior EKG from [address] of the head is pending at the time of this dictation. ASSESSMENT AND PLAN: 1. Trey Hicks is an 81-year-old male who had been hospitalized for 3 days for acute renal failure with post obstructive diuresis. The patient was on replacement with intravenous fluids. At this point, he had syncopal episode when he stood up and was standing up to wait for his son to arrive in the car to pick him up. I suspect at this point the etiology of patient's syncope is multifactorial. First of all, the patient appears to be orthostatic although his vital signs clearly do not delineate that. The patient has had pressures in the 160s, going down to one- teens during his past hour of this ER stay. The patient also had not been ambulating that much in the past 3 days, which may contribute to that. He also had been placed on Flomax for the past 24 hours , which could cause orthostatic hypotension. At this point, the patient is going to be placed on overnight observation on telemetry monitoring bed. We will follow up troponins, transthoracic echocardiogram and CT of head. The patient also is going to be given gentle intravenous hydration and Flomax is going to be stopped for the time being. I will ask Physical Therapy to see patient in consultation and the patient hopefully will be able to be discharged tomorrow to home. I discussed this with patient's son-in-law that patient is an 81-year-old recently person who would benefit from staying with the family members for the next 3 or 4 days after discharge. We will also set up visiting nurse association as we already did before. 2. In regards to patient's hypertension, the patient is going to be continued on atenolol. Once again, I will also also order a transthoracic echocardiogram. 3. The patient has history of hematuria and his urine is blood tinged in the Nassar bag. Due to that, I will place the patient on sequential compression devices and we will not place him on heparin for DVT prophylaxis. 4. The patient has normocytic anemia, this is most likely due to acute renal failure. Nevertheless due to syncope, stool hemoccult is going to be checked. The patient had denied history of melena or red blood per rectum. 5. The patient's code status is full. 6. In regards to patient's obstructive uropathy, Nassar is going to be continued as previously. TIME SPENT: Approximately 62 minutes was spent on patient's admission. [id number]/[facility] #: [id number]/[facility] #: [id number] RAFAT
[2017-03-05 22:03] LABS: Urine Bacteria Absent (Absent); Urine Bilirubin Negative (Negative); Urine Glucose 1+(50 mg/dL) (Negative); Urine Nitrite Negative (Negative)
[2017-03-06 07:07] LABS: Hematocrit 26 % (42-52); Mean Corpuscular HGB Conc 35 g/dl (31-36); Mean Corpuscular Hemoglobin 30 pg (27-31); Mean Corpuscular Volume 88 fL (80-94); Mean Platelet Volume 9 um3 (7.4-10.4); Red Blood Count 2.97 10^6/ul (4.0-5.4); Red Cell Distribution Width 13 % (10.5-15); White Blood Count 10.9 10^3/ul (3.5-10.8)
[2017-03-06 07:22] LABS: Calcium 8.3 mg/dL (8.6-10.3); EGFR African American 31.9 (>60); EGFR Non-African American 24.8 (>60); Potassium 4.1 mmol/L (3.5-5.0)
[2017-03-06 07:23] LABS: Troponin I 0.03 ng/mL (<0.04)
[2017-03-06] MEDS ORDERED: Tamsulosin CAP* 0.4 MG PO SCH (09:00)
--- NOTE | 2017-03-06 11:20 | ECHO ---
Patient: Ayse RITCHIE [facility] Rec#: [id number] : 1935 Date: 03/06/2017 Age: 81y Height: 188 cm / 74.0 in Weight: 81.7 kg / 180.1 lbs Sex: M BSA: 2.1 Room#: [facility] Admit Date#: 03/05/2017 Type: Inpatient Referring: Sabi Parsons MD Reading: Loi Vasquez MD Brush Holder Assembler: Estella Serrato RN RDCS Transthoracic Echocardiogram Indication: Syncope BP: 130/53 HR: 57 Rhythm: Bradycardia Findings History: HTN, HLD, Lyme disease Technical Comments: The study quality is fair. Completed at 0855. Left Ventricle: The left ventricular chamber size is normal. Mild to moderate concentric left ventricular hypertrophy is observed. There is increased basal septal hypertrophy noted without evidence of an increased gradient across the left ventricular outflow tract. Global left ventricular wall motion and contractility are within normal limits. There is normal left ventricular systolic function. The estimated ejection fraction is 55-60%. The left ventricular diastolic filling pattern is consistent with pseudonormalization. Left Atrium: The left atrium is mildly dilated. Right Ventricle: The right ventricular chamber size and systolic function are within normal limits. Right Atrium: The right atrium is mildly dilated. Aortic Valve: The aortic valve is trileaflet. The aortic valve leaflets are mildly thickened. There is aortic annular calcification. There is a trace of aortic regurgitation. There is no evidence of aortic stenosis. Mitral Valve: The mitral valve leaflets are mildly thickened. There is mild mitral regurgitation. There is no evidence of mitral stenosis. Tricuspid Valve: The tricuspid valve leaflets are normal. There is mild to moderate tricuspid regurgitation. There is evidence of mild pulmonary hypertension. There is no tricuspid stenosis. Pulmonic Valve: The pulmonic valve appears normal. There is mild pulmonic regurgitation. There is no pulmonic stenosis. Pericardium: There is no significant pericardial effusion. Aorta: There is no dilatation of the ascending aorta. The aortic arch is not well visualized. The aortic root is normal in size. Pulmonary Artery: The main pulmonary artery is not well visualized. Venous: The inferior vena cava appears normal in size. There is a greater than 50% respiratory change in the inferior vena cava dimension. Summary: There was not any prior study for comparison. Conclusions The left ventricular chamber size is normal. Mild to moderate concentric left ventricular hypertrophy is observed. There is increased basal septal hypertrophy noted without evidence of an increased gradient across the left ventricular outflow tract. Global left ventricular wall motion and contractility are within normal limits. The estimated ejection fraction is 55-60%. The left ventricular diastolic filling pattern is consistent with pseudonormalization. The left atrium is mildly dilated. The right atrium is mildly dilated. There is a trace of aortic regurgitation. There is mild mitral regurgitation. There is mild to moderate tricuspid regurgitation. There is evidence of mild pulmonary hypertension. There is mild pulmonic regurgitation. Measurements Name Value Normal Range RVDdMajor (2D) 3.5 cm (2.2 - 4.4) RAd ISD 4CH 5.4 cm (3.4 - 4.9) RA (A4C)W 4.2 cm (2.9 - 4.6) IVSd (2D) 1.4 cm (0.6 - 1) LVPWd (2D) 1.3 cm (0.6 - 1) LVIDd (2D) 4.2 cm (3.6 - 5.4) LVIDs (2D) 2.7 cm - LV FS (2D) 35 % (25 - 45) Aortic Annulus 2.5 cm (1.4 - 2.6) Ao root diameter (2D) 3.4 cm (2.1 - 3.5) Ascending Ao 3.3 cm (2.1 - 3.4) LA dimension (AP) 2D 4 cm (2.3 - 3.8) LAd ISD 4CH 5.1 cm (2.9 - 5.3) LA ISD 4CH W 5.1 cm (2.5 - 4.5) Name Value Normal Range LA ESV SP 4CH (A/L) 87 ml - LA ESV SP 2CH (A/L) 50 ml - LA ESV BP (A/L) 68 ml - LA ESV BP (A/L) index 32.5 ml/m2 - LA ESV SP 4CH (MOD) 78 ml - LA ESV SP 2CH (MOD) 46 ml - Name Value Normal Range MV E-wave Vmax 0.72 m/sec - MV deceleration time 408 msec - MV A-wave Vmax 0.73 m/sec - MV E:A ratio 0.98 ratio - LV septal e' Vmax 0.06 m/sec - LV lateral e' Vmax 0.07 m/sec - LV E:e' septal ratio 12 ratio - LV E:e' lateral ratio 10.3 ratio - Name Value Normal Range AV Vmax 1.3 m/sec - AV VTI 34.3 cm - AV peak gradient 6.9 mmHg - AV mean gradient 5.1 mmHg - LVOT Vmax 1 m/sec - LVOT VTI 25.1 cm - LVOT peak gradient 4.4 mmHg - LVOT mean gradient 2.4 mmHg - Name Value Normal Range TR Vmax 3 m/sec - TR peak gradient 36 mmHg - RAP 3 mmHg - RVSP 39 mmHg - IVC diameter 1.9 cm - Name Value Normal Range PV Vmax 0.78 m/sec -
[2017-03-06 16:17] VITALS: BP 136/69
--- NOTE | 2017-03-07 02:26 | DS ---
CC: FRANCK Xie; Dr. Winters; Dr. Mcclellan * DISCHARGE SUMMARY ADDENDUM: DATE OF ADMISSION: DATE OF DISCHARGE: 03/06/17 PRIMARY CARE PROVIDER: FRANCK Xie ADMISSION DIAGNOSIS: Near syncope. DISCHARGE DIAGNOSIS: Near syncope suspected orthostasis. SECONDARY DIAGNOSES: Unchanged as in prior discharge summary. MEDICATIONS: At discharge included: 1. Lipitor 10 mg weekly. 2. Probiotic 1 capsule weekly. 3. Multivitamin 1 tablet daily. 4. [place]-3 fatty acid. Atenolol and Flomax were discontinued. HOSPITALIZATION COURSE: Trey Hicks is an 81-year-old male who was being discharged from our facility on 03/05/17 after 3 days of hospital stay for acute urinary retention, hyperkalemia associated with acute renal failure due to most likely BPH. During that time, the patient was placed on Flomax. At discharge, the patient was awaiting for his son-in-law to come over in the car. He was standing next to the hospital building and his son saw him leaning on the wall and looking unsteady. The patient had a near syncopal episode when he lowered himself to the ground. He did not lose consciousness. This was suspected to be an orthostatic event. When he come into the hospital, his blood pressures were in the 160s and then they dropped to 130s and subsequently to the 120s. The patient felt that he had a similar episode when he had his blood drawn "years ago." It was thought starting the patient on Flomax may be related to the orthostasis. The patient was subsequently brought back to the hospital and observed on telemetry monitored bed. He was noted to have an occasional dropped beat. He has a baseline first degree AV block, but occasionally he would drop the QRS. There was no evidence of Mobitz type 1 or 2 block. He was hemodynamically stable and underwent a Physical Therapy evaluation and ambulated without any problems. His Flomax was discontinued. Please also note that the patient has had a bradycardia and had been in sinus bradycardia throughout his hospital stay. Due to his systolic pressures currently being on the lower side in the one-teens, his atenolol was discontinued. In the future, the patient likely may be restarted on Flomax. I suspect that if he becomes hypertensive, it will be safer for the patient to be placed on calcium channel kamilah than a beta-kaimlah. PHYSICAL EXAMINATION: At the time of discharge, blood pressure of 115/57, heart rate of 61 and regular, respiratory rate 20, oxygen saturation 98% on room air, temperature of 98.5. General: The patient is a pleasant 81-year-old male who is in no acute distress. Alert, awake, and oriented x3. HEENT: Head , atraumatic, normocephalic. Eyes: Pupils are reactive to light and accommodation. Oropharynx clear. Mucosa moist. Neck: Supple. No JVD. No bruits bilaterally. Cardiovascular: Regular rate and rhythm. No murmur. Respiratory: Clear to auscultation bilaterally. Abdomen: Soft, nontender. Bowel sounds are present in all 4 quadrants. Extremities: There is no edema. Pulses are +2 bilaterally. No clubbing or cyanosis. Neuro Evaluation: The speech is clear. Cranial nerves II through XII are grossly intact. Motor strength is 5/5 bilaterally. Please note the patient is being discharged with a Nassar in place. [id number]/[facility] #: [id number] RAFAT
--- NOTE | 2017-03-07 18:55 | ED ---
Beto Arenas Angela, scribed for Tonio Sanz MD on 03/05/17 at 1651 . Syncope/Near Syncope - HPI Summary HPI Summary: This pt is a 81 y/o male presenting, accompanied by son in law, to [facility] for a syncopal episode today. Pt reports he was just discharged today from [facility] for acute renal failure. Son-in-law was pulling up the car to the front door while the pt was waiting in the waiting room when he had a sudden onset of syncope. Son-in-law notes he saw the pt "slink against the wall" and jumped out to grab him. Per son-in-law pt was out for less than 1 minute. Pt woke up after sternal rubs. Prior to syncopal episode, pt notes he felt light-headed. He denies chest pain, SOB, headache, dizziness. Pt currently denies any complaints. - History Of Current Complaint Hx Obtained From: Patient Onset/Duration: Sudden Onset, Resolved Timing: Seconds - less than 1 minute Context: Witnessed, Loss Of Consciousness Activity At Onset: Other - sitting down Associated Head Trauma: No Alleviating Factor(s): Other - sternal rubs Associated Signs And Symptoms: Other - POS: light-headeness (now resolved). NEG : chest pain, SOB, headache, dizziness - Allergies/Home Medications Allergies/Adverse Reactions: Allergies Allergy/AdvReac Type Severity Reaction Status Date / Time Ciprofloxacin Allergy Unknown Verified 03/05/17 16:51 Reaction Details PMH/Surg Hx/FS Hx/Imm Hx Cardiovascular History: Reports: Hx Hypercholesterolemia - mild, Hx Hypertension History: Reports: Hx Benign Prostatic Hyperplasia, Other Problems/ Disorders - PMHx pos enlarged prostate Sensory History: Reports: Hx Contacts or Glasses Denies: Hx Hearing Aid Opthamlomology History: Reports: Hx Contacts or Glasses - Cancer History Cancer Type, 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 - Surgical History Surgery Procedure, Year, and Place: tonsils; hip recontruction right Infectious Disease History: No Infectious Disease History: Denies: History Other Infectious Disease, Traveled Outside the [place] in Last 30 Days - Family History Known Family History: Positive: Other - Lung CA - father - Social History Alcohol Use: None Hx Substance Use: No Substance Use Type: Reports: None Hx Tobacco Use: No Smoking Status (MU): Never Smoked Tobacco Review of Systems Negative: Fever, Chills Negative: Chest Pain Negative: Shortness Of Breath Neurological: Other - POS: light-headedness (now resolved) NEG: dizziness Positive: Syncope. Negative: Headache All Other Systems Reviewed And Are Negative: Yes Physical Exam - Summary Physical Exam Summary: VITAL SIGNS: Reviewed. GENERAL: Patient is a well-developed and nourished male. Patient is not in any acute respiratory distress. HEAD AND FACE: No signs of trauma. No ecchymosis, hematomas or skull depressions. No sinus tenderness. EYES: PERRLA, EOMI x 2, No injected conjunctiva, no nystagmus. EARS: Hearing grossly intact. Ear canals and tympanic membranes are within normal limits. MOUTH: Oropharynx within normal limits. NECK: Supple, trachea is midline, no adenopathy, no JVD, no carotid bruit, no c- spine tenderness, neck with full ROM. CHEST: Symmetric, no tenderness at palpation LUNGS: Clear to auscultation bilaterally. No wheezing or crackles. CVS: Regular rate and rhythm, S1 and S2 present, no murmurs or gallops appreciated. ABDOMEN: Soft, non-tender. No signs of distention. No rebound no guarding, and no masses palpated. Bowel sounds are normal. EXTREMITIES: FROM in all major joints, no edema, no cyanosis or clubbing. NEURO: Alert and oriented x 3. No acute neurological deficits. Speech is normal and follows commands. SKIN: Pt is clammy and diaphoretic. Triage Information Reviewed: Yes Vital Signs On Initial Exam: Initial Vitals Temp Pulse Resp BP Pulse Ox 97.4 F 81 21 168/71 96 03/05/17 16:47 03/05/17 16:47 03/05/17 16:47 03/05/17 16:47 03/05/17 16:47 Vital Signs Reviewed: Yes Diagnostics - Vital Signs Vital Signs Temp Pulse Resp BP Pulse Ox 03/05/17 16:47 97.4 F 81 21 168/71 96 - Laboratory Result Diagrams: 03/05/17 16:50 03/05/17 16:50 Lab Statement: Any lab studies that have been ordered have been reviewed, and results considered in the medical decision making process. - EKG 1654 Cardiac Rate: NL EKG Rhythm: Sinus Rhythm - at 72 bpm EKG Interpretation: LVH. EKG Comparison: No Significant Change - unchanged from prior EKG done on . Course/Dx Assessment/Plan: This pt is a 81 y/o male presenting, accompanied by son in law , to [facility] for a syncopal episode today. Pt reports he was just discharged today from [facility] [place]. Son-in-law was pulling up the car to the front door while the pt was waiting in the waiting room when he had a sudden onset of syncope. Son-in-law notes he saw the pt "slink against the wall " and jumped out to grab him. Per son-in-law pt was out for less than 1 minute. Pt woke up after sternal rubs. Prior to syncopal episode, pt notes he felt light -headed. He denies chest pain, SOB, headache, dizziness. Pt currently denies any complaints. Test results without any significant abnormalities except for his chronic anemia and chronic renal failure. I discussed the case with Dr. Parsons , who accepted the pt for admission. Pt is hemodynamically stable, alert and oriented x3. - Diagnoses Provider Diagnoses: Syncope - Physician Notifications Discussed Care of Patient With: Sabi Parsons Time Discussed With Above Provider: 17:23 Instructed by Provider To: Other - I discussed the pt's case with Dr. Parsons, who accepted the pt for admission. Discharge - Discharge Plan Condition: Stable Disposition: ADMITTED TO [facility] The documentation as recorded by the Beto erazo Angela accurately reflects the service I personally performed and the decisions made by me, Tonio Sanz MD.
[2017-03-09] MEDS ORDERED: Atorvastatin* 10 MG TAB PO SCH (17:20)
== END 2017-03-06 17:55 | disposition home or self-care (01) ==
LOC: ED 16:45 → MEDTELE 17:17
PROVIDERS: ADMIT Internal Medicine; ATTEND Internal Medicine
DX: R55 Syncope and collapse (principal); Z88.1 Allergy status to other antibiotic agents; I10 Essential (primary) hypertension; E78.5 Hyperlipidemia, unspecified; N40.0 Benign prostatic hyperplasia without lower urinary tract symptoms; R31.9 Hematuria, unspecified; I51.7 Cardiomegaly; R94.31 Abnormal electrocardiogram [ECG] [EKG]
CPT/HCPCS: 36415; 70450; 80048; 80053; 81003; 81015; 83605; 83735; 84443; 84484; 85025; 85027; 87086; 93005; 93306; 96360; 96361; 99283; G0378; G8981-GP-CI; G8982-GP-CH; G8983-GP-CI

== ENCOUNTER 2018-02-23 12:56 | Emergency (ER) | payer MEDICARE, BC ==
[2018-02-23 13:16] VITALS: BP 125/56
--- NOTE | 2018-02-23 14:07 | UC ---
Ear Complaint HPI - HPI Summary HPI Summary: Patient states for about 1 week his right ear feels like there is something in it. Has a history of cerumen impaction and wonders if he has wax again. No ear pain or discharge or decrease in hearing. No URI symptoms. - History of Current Complaint Chief Complaint: UCEar Stated Complaint: EAR WAX Time Seen by Provider: 02/23/18 13:56 Hx Obtained From: Patient Onset/Duration: Gradual Onset, Lasting Days, Still Present Severity Initially: Mild Severity Currently: Mild Pain Intensity: 0 Pain Scale Used: 0-10 Numeric Aggravating Factors: Nothing Alleviating Factors: Nothing Associated Signs/Symptoms: Positive: Foreign Body Sensation - Allergies/Home Medications Allergies/Adverse Reactions: Allergies Allergy/AdvReac Type Severity Reaction Status Date / Time ciprofloxacin [From Cipro] Allergy Unknown Verified 02/23/18 13:16 Reaction Details PMH/Surg Hx/FS Hx/Imm Hx Endocrine History: Dyslipidemia Cardiovascular History: Hypertension Other Cancer History: SKIN CANCER - Surgical History Surgical History: Yes Surgery Procedure, Year, and Place: tonsils; hip recontruction right - Family History Known Family History: Positive: Other - Lung CA - father, Non-Contributory - Social History Alcohol Use: None Substance Use Type: None Smoking Status (MU): Never Smoked Tobacco - Immunization History Most Recent Influenza Vaccination: 2012 Most Recent Pneumonia Vaccination: received in past Review of Systems All Other Systems Reviewed And Are Negative: Yes Constitutional: Positive: Negative ENT: Positive: Other - RIGHT EAR FEELS FULL Respiratory: Positive: Negative Cardiovascular: Positive: Negative Gastrointestinal: Positive: Negative Physical Exam Triage Information Reviewed: Yes Appearance: Well-Appearing, No Pain Distress, Well-Nourished Vital Signs: Initial Vital Signs Temp 98.1 F 02/23/18 13:12 Pulse 56 02/23/18 13:12 Resp 18 02/23/18 13:12 BP 125/56 02/23/18 13:12 Pulse Ox 100 02/23/18 13:12 Vital Signs Reviewed: Yes Eyes: Positive: Conjunctiva Clear ENT: Positive: Hearing grossly normal, TMs normal, Other - RIGHT EAC WITH NON OBSTRUCTIVE CERUMEN Neck: Positive: Supple Respiratory: Positive: No respiratory distress, No accessory muscle use Cardiovascular: Positive: Pulses Normal Abdomen Description: Positive: Soft Musculoskeletal: Positive: No Edema Neurological: Positive: Alert Psychological: Positive: Age Appropriate Behavior Skin: Negative: Rashes Ear Complaint Course/Dx - Course Course Of Treatment: RIGHT EAR SUCCESSFULLY IRRIGATED BY RN. - Differential Dx/Diagnosis Provider Diagnosis: Impacted cerumen of right ear Discharge - Sign-Out/Discharge Documenting (check all that apply): Patient Departure All imaging exams completed and their final reports reviewed: No Studies - Discharge Plan Condition: Stable Disposition: HOME Patient Education Materials: Cerumen Impaction (ED) Referrals: Yvrose Gleason NP [Primary Care Provider] - If Needed Additional Instructions: RIGHT EAR CANAL WAS SUCCESSFULLY IRRIGATED TODAY. - Billing Disposition and Condition Condition: STABLE Disposition: Home
== END 2018-02-23 14:39 | disposition home or self-care (01) ==
LOC: UCEAST 12:56
DX: H61.21 Impacted cerumen, right ear (principal); Z88.1 Allergy status to other antibiotic agents; I10 Essential (primary) hypertension
CPT/HCPCS: 99213; G0463

== ENCOUNTER 2019-04-08 16:02 | Emergency (ER) | payer MEDICARE, BC ==
[2019-04-08 16:18] VITALS: BP 142/76
--- NOTE | 2019-04-08 16:18 | UC ---
Ear Complaint HPI - HPI Summary HPI Summary: 83yo male presenting "plugged" R ear x1 week. Patient states this happens a couple time sa year and always has to get the ear cleaned out. Denies pain. Denies URI symptoms. Denies fever and chills. Denies L ear symptoms. - History of Current Complaint Stated Complaint: EAR WAX BUILD UP Hx Obtained From: Patient Pain Intensity: 0 - Allergies/Home Medications Allergies/Adverse Reactions: Allergies Allergy/AdvReac Type Severity Reaction Status Date / Time amoxicillin Allergy Intermediate GI Upset Verified 04/08/19 16:17 ciprofloxacin [From Cipro] Allergy Unknown Verified 04/08/19 16:17 Reaction Details clavulanic acid Allergy Unknown Verified 04/08/19 16:17 Reaction Details PMH/Surg Hx/FS Hx/Imm Hx Endocrine History: Dyslipidemia Cardiovascular History: Hypertension - Surgical History Surgical History: Yes Surgery Procedure, Year, and Place: tonsils; hip recontruction right - Family History Known Family History: Positive: Other - Lung CA - father, Non-Contributory - Social History Alcohol Use: None Substance Use Type: None Smoking Status (MU): Never Smoked Tobacco - Immunization History Most Recent Influenza Vaccination: 2012 Most Recent Pneumonia Vaccination: received in past Review of Systems All Other Systems Reviewed And Are Negative: Yes Constitutional: Positive: Negative. Negative: Fever, Chills ENT: Positive: Ear Ache - R ear "plugged". Negative: Sore Throat, Sinus Congestion Respiratory: Positive: Negative Cardiovascular: Positive: Negative Gastrointestinal: Positive: Negative Neurological: Positive: Negative Physical Exam Triage Information Reviewed: Yes Appearance: Well-Appearing, No Pain Distress, Well-Nourished Vital Signs: Initial Vital Signs Temp 98.4 F 04/08/19 16:16 Pulse 68 04/08/19 16:16 Resp 18 04/08/19 16:16 BP 142/76 04/08/19 16:16 Pulse Ox 99 04/08/19 16:16 Eyes: Positive: Conjunctiva Clear ENT: Positive: Hearing grossly normal, Pharynx normal, TMs normal - cerumen impaction of R ear. R ear irrigation revealed normal intact TM. TMs with normal light reflex and landmarks b/l. no signs of infection. no effusions. Neck exam: Normal Neck: Positive: Supple, Nontender, No Lymphadenopathy Respiratory Exam: Normal Respiratory: Positive: Lungs clear, Normal breath sounds, No respiratory distress Cardiovascular Exam: Normal Cardiovascular: Positive: RRR Neurological: Positive: Alert Psychological: Positive: Age Appropriate Behavior Skin Exam: Normal Ear Complaint Course/Dx - Course Course Of Treatment: Ear irrigation performed on right ear to remove cerumen. Cerumen removal revealed normal intact TMs bilaterally without signs of infection. Patient voiced relief of plugged feeling. Instructed patient to return or follow-up with PCP if symptoms return. Patient voiced understanding and agreed with the plan. - Differential Dx/Diagnosis Provider Diagnosis: Impacted cerumen of right ear Discharge ED - Sign-Out/Discharge Documenting (check all that apply): Patient Departure All imaging exams completed and their final reports reviewed: No Studies - Discharge Plan Condition: Stable Disposition: HOME Patient Education Materials: Cerumen Impaction (ED) Referrals: Yvrose Gleason NP [Primary Care Provider] - Additional Instructions: As discussed, you had wax removed from your ear today. There are no signs of infection. You may return or follow up with your primary care provider if your symptoms return. - Billing Disposition and Condition Condition: STABLE Disposition: Home
== END 2019-04-08 16:53 | disposition home or self-care (01) ==
LOC: UCEAST 16:02
DX: H61.21 Impacted cerumen, right ear (principal); E78.5 Hyperlipidemia, unspecified; I10 Essential (primary) hypertension; Z88.1 Allergy status to other antibiotic agents; Z88.0 Allergy status to penicillin
CPT/HCPCS: 99212; G0463